=== PATIENT | female | born 1955 | race Hispanic/Latino ===

== ENCOUNTER 2021-05-22 08:15 | Day surgery (SDC) | payer OTHER, MEDICARE ==
[2021-05-20 10:57] LABS: BASOPHILS % (AUTO) 0.4 % (0.0-5.0); EOSINOPHILS % (AUTO) 1.5 % (0.0-8.0); HEMATOCRIT 39.9 % (36-48); LYMPHOCYTES % (AUTO) 26.1 % (21.0-51.0); MEAN CORPUSCULAR HEMOGLOBIN 30.2 pg (27.0-33.0); MEAN CORPUSCULAR HGB CONC 33.3 g/dL (32.0-36.0); MEAN CORPUSCULAR VOLUME 90.5 fL (79-99); MONOCYTES % (AUTO) 6.7 % (3.0-13.0); PLATELET COUNT (AUTO) 225 K/uL (130-400); RED BLOOD CELL COUNT(AUTO) 4.41 MIL/uL (4.00-5.50); RED CELL DISTRIBUTION WIDTH 12.4 % (11.0-15.5); WHITE BLOOD COUNT (AUTO) 9.9 K/uL (4.8-10.8)
[2021-05-20 11:03] LABS: CREATININE 0.5 mg/dL (0.5-1.5); POTASSIUM 4.3 mmol/L (3.5-5.1)
[2021-05-21 09:51] VITALS: BP 137/78
[2021-05-22] VITALS (15 sets, daily range): BP systolic 86–124; BP diastolic 48–67
[~2021-05-22] VITALS: Ht 152.4 cm; Wt 77.1 kg
[2021-05-22] MEDS: CEFAZOLIN SODIUM 1 GM VIAL IVP SCH ×2 (06:00→11:37)
[~2021-05-22 08:15] MED LIST: ALEN70TA80 PO; ASPI-1443 PO; BACL10TA PO; BIOTIN PO; DOCU100T9 PO; EMPA25TA PO; ERGO500093 PO; LISI10TA24 PO; MELO-106 PO; OMEP40CA21 PO; OXYB5TAB15 PO; ROSU40TA21 PO
[2021-05-22] MEDS ORDERED: 0.9%NACL 1000ML 1,000 ML IV ONE (09:04)
[2021-05-22] MEDS ORDERED: EPINEPHRINE 1 MG/ML 30ML VIAL IJ ONE (10:41)
[2021-05-22] MEDS ORDERED: LIDOCAINE PF 100MG/5ML (2%) SYRINGE 5ML ONE (10:51)
[2021-05-22] MEDS ORDERED: SUCCINYLCHOLINE CHLORIDE 20 MG/ML 10 ML VIAL ONE (10:51)
[2021-05-22] MEDS ORDERED: ROPIVACAINE 0.5% 5MG/ML 30ML IJ ONE (10:51)
[2021-05-22] MEDS ORDERED: PROPOFOL 10 MG/ML 20ML VIAL IV ONE (10:52)
[2021-05-22] MEDS ORDERED: PHENYLEPHRINE HCL 10 MG/ML 1ML VIAL IV ONE ×2 (11:37→11:38)
[2021-05-22] MEDS ORDERED: GLYCOPYRROLATE 1 MG/5 ML SYRINGE ONE (11:38)
[2021-05-22] MEDS ORDERED: EPHEDRINE SULFATE 50 MG/ML AMPULE ONE (12:03)
[2021-05-22] MEDS ORDERED: FENTANYL CITRATE PF 50 MCG/1 ML 2ML VIAL ONE (12:18)
[2021-05-22] MEDS ORDERED: ONDANSETRON 4MG INJ ONE (14:20)
[2021-05-22] MEDS ORDERED: KETOROLAC 30MG VIAL (30MG/ML) ONE (14:28)
[2021-05-22] MEDS ORDERED: HYDR-4060 PO (14:39)
[2021-05-22] MEDS ORDERED: CEPH500B PO (14:39)
== END 2021-05-22 16:10 | disposition home or self-care (01) ==
LOC: DAH 08:15
PROVIDERS: ATTEND Orthopaedic Surgery
DX: M75.111 Incomplete rotator cuff tear or rupture of right shoulder, not specified as traumatic (principal); M19.011 Primary osteoarthritis, right shoulder; S46.111A Strain of muscle, fascia and tendon of long head of biceps, right arm, initial encounter; M25.611 Stiffness of right shoulder, not elsewhere classified; M75.21 Bicipital tendinitis, right shoulder; I10 Essential (primary) hypertension; I25.10 Atherosclerotic heart disease of native coronary artery without angina pectoris; E78.5 Hyperlipidemia, unspecified; E11.9 Type 2 diabetes mellitus without complications; K21.9 Gastro-esophageal reflux disease without esophagitis; Z79.82 Long term (current) use of aspirin; Z83.3 Family history of diabetes mellitus; Z79.899 Other long term (current) drug therapy; Z98.890 Other specified postprocedural states
CPT/HCPCS: 29824; 29826; 29827; 29828; 36415; 64415; 76942; 80048; 82948 ×2; 85025; 87635; A4215; A4221; A4222; A4223; A4565; A4600; A4649 ×4; A4663; A4930 ×2; A6204; C1713 ×3; C9803; J0171; J0330; J0690; J1885; J2001; J2370 ×2; J2405; J2704; J2795; J3010; J3490 ×2; J7030 ×2